=== PATIENT | female | born 1945 | race Caucasian/White ===

== ENCOUNTER 2017-02-26 15:48 | Emergency (ER) | END 2017-02-26 23:38 | disposition short-term general hospital (02) | DX: R06.89 Other abnormalities of breathing (principal); J44.1 Chronic obstructive pulmonary disease with (acute) exacerbation; I50.21 Acute systolic (congestive) heart failure; G93.40 Encephalopathy, unspecified; E86.0 Dehydration; I10 Essential (primary) hypertension; F17.210 Nicotine dependence, cigarettes, uncomplicated | CPT/HCPCS: 36415; 36600; 71010; 80053; 81001; 82803; 83690; 84484; 85025; 93005; 94644; 94660; 96374; 96375; 99291; J1940; J2930 ==

== ENCOUNTER 2017-07-03 14:29 | Emergency (ER) | payer OTHER, MEDICAID ==
[~2017-07-03] VITALS: Ht 160 cm; Wt 72.7 kg
[~2017-07-03 14:29] MED LIST: CLON-379 PO
[2017-07-03 14:48] VITALS: Ht 160 cm; Wt 72.7 kg
[2017-07-03 18:07] LABS: ABNORMAL IP MESSAGE 1; BASOPHIL # 0.1 10^3/ul (0.0-0.1); BASOPHILS % 0.5 % (0.0-2.0); EOSINOPHILS # 0.1 10^3/ul (0.0-0.5); EOSINOPHILS % 0.7 % (0.0-7.0); HEMATOCRIT 53.3 % (37.0-47.0); HEMOGLOBIN 14.7 g/dl (12.0-16.0); LYMPHOCYTES # 1.2 10^3/ul (0.8-2.9); LYMPHOCYTES % 11.8 % (15.0-51.0); MEAN CORPUSCULAR HEMOGLOBIN 24.1 pg (29.0-33.0); MEAN CORPUSCULAR HGB CONC 27.6 g/dl (32.0-37.0); MEAN CORPUSCULAR VOLUME 87.5 fl (82.0-101.0); MONOCYTE # 0.9 10^3/ul (0.3-0.9); MONOCYTES % 8.6 % (0.0-11.0); NEUTROPHIL # 8.2 10^3/ul (1.6-7.5); NEUTROPHILS % 77.9 % (39.0-77.0); PLATELET COUNT 268 10^3/UL (140-415); RED BLOOD COUNT 6.09 10^6/ul (4.20-5.40); RED CELL DISTRIBUTION WIDTH 22.7 % (11.5-14.5); WHITE BLOOD COUNT 10.5 10^3/ul (4.8-10.8)
[2017-07-03 18:10] LABS: POSITIVE DIFF @See below
--- NOTE | 2017-07-03 18:13 | RADRPT ---
PROCEDURE: US Lower extremity Venous. CLINICAL INDICATION: Pain and swelling TECHNIQUE: Multiple sonographic images of the bilateral lower extremity deep venous system was obt ained utilizing grayscale, color-flow, compressive sonography and doppler imaging with augmentation. The images were reviewed on a PACS workstation. COMPARISON: None. FINDINGS: There is normal compressibility and flow within the bilateral common femoral, deep femoral, superfic ial femoral and popliteal veins. Normal respiratory variation and augmentation is seen. There is normal color flow and compressibility of bilateral posterior tibial and peroneal veins IMPRESSION: No sonographic evidence for bilateral lower extremity deep venous thrombosis. RPTAT: HH .Krzysztof Beckford MD, MD Date Time Electronically viewed and signed by .Krzysztof Beckford MD, on 07/03/2017 18:12 .W/
[2017-07-03 18:16] LABS: ADD UMIC YES; UR ASCORBIC ACID NEGATIVE (NEGATIVE); UR BACTERIA FEW /HPF (NONE SEEN); UR BILIRUBIN (Dip) NEGATIVE (NEGATIVE); UR BLOOD (Dip) NEGATIVE (NEGATIVE); UR CLARITY SLIGHTLY CLOUDY (CLEAR); UR COLOR YELLOW (YELLOW); UR GLUCOSE (Dip) NEGATIVE (NEGATIVE); UR KETONES (Dip) NEGATIVE (NEGATIVE); UR LEUKOCYTE ESTERASE (Dip) NEGATIVE Leu/ul (NEGATIVE); UR MUCUS MODERATE /HPF (NONE SEEN); UR NITRITE (Dip) NEGATIVE (NEGATIVE); UR RBC 2 /HPF (0-5); UR SPECIFIC GRAVITY (Dip) 1.024 (1.003-1.030); UR SQUAMOUS EPITHELIAL CELL FEW /HPF (FEW); UR TOTAL PROTEIN (Dip) 2+ mg/dl (NEGATIVE); UR UROBILINOGEN (Dip) 1+ mg/dL (NEGATIVE)
[2017-07-03] MEDS ORDERED: morphine 4 MG/ML VIAL IV STA (18:17)
[2017-07-03 18:29] LABS: INR 1.1; PARTIAL THROMBOPLASTIN TIME 27.8 Sec (25.0-35.0); PROTIME 14.2 Sec (12.2-14.2); PT RATIO 1.1
[2017-07-03 18:31] LABS: ALBUMIN 3.6 g/dl (3.3-4.9); ALBUMIN/GLOBULIN RATIO 1.05; BILIRUBIN,INDIRECT 0.2 mg/dl (0-1.1); BILIRUBIN,TOTAL 0.2 mg/dl (0.2-1.3); CALCIUM 8.6 mg/dl (8.4-10.2); CREATININE 0.72 mg/dl (0.44-1.00); POTASSIUM 4.9 mmol/L (3.5-5.1)
[2017-07-03 18:43] LABS: TROPONIN-I 0.035 ng/ml (0.00-0.12)
--- NOTE | 2017-07-03 18:44 | RADRPT ---
PROCEDURE: Chest x-ray CLINICAL INDICATION: Shortness of breath TECHNIQUE: Chest single view COMPARISON: 02/26/2017 FINDINGS: There is severe cardiomegaly and moderate sclerotic aortic calcification. Mild to moderate CHF is id entified. No confluent pneumonia seen. Costophrenic angles are sharp. Bones are osteopenic. IMPRESSION: 1. Severe cardiomegaly with mild to moderate degree CHF. 2. Atherosclerotic aortic calcification. 3. Scoliosis with convexity to the right RPTAT: HH .Krzysztof Beckford MD, MD Date Time Electronically viewed and signed by .Krzysztof Beckford MD, on 07/03/2017 18:44 .W/
[2017-07-03 18:53] LABS: AADO2 Arterial 45.7 mmHg (7.0-24.0); Allen Test ACCEPTAB; Arterial Base Excess 6.1 mmol/L (-3.0-3); Arterial COHb 2.3 % (0.0-3.0); Arterial Fraction of Oxyhgb 84.2 % (93.0-99.0); Arterial MetHb 0.2 % (0.0-1.5); Arterial Total Hemglobin 15.8 g/dl (12.0-18.0); MODE NASAL CANNULA
[2017-07-03] MEDS ORDERED: ALBUTEROL 0.5% (NEB) 2.5 MG/0.5 ML AMP INH STA (19:00)
[2017-07-03] MEDS ORDERED: FUROSEMIDE 20 MG INJ IV ONE (19:00)
--- NOTE | 2017-07-03 21:24 | RADRPT ---
PROCEDURE: CT abdomen and pelvis without contrast. CLINICAL INDICATION: Abdominal pain. Distension. TECHNIQUE: CT scan of the abdomen and pelvis without contrast was performed and is reconstructed a t at 2.5 mm contiguous axial intervals from the dome of the diaphragm to the inferior pubic rami.. The patient was scanned without intravenous contrast. Sagittal and coronal reformatted images were obtained from the axial source images. The calculated radiation dose measures 1158 mGy centimeters. The CTDI measures 22 mGy. Individualized dose optimization technique was used for the performance of this exam. This included 1. Automated exposure control. 2. Adjustment of the mA and / or kV according to the patient's size. 3. Use of iterative reconstructed technique. COMPARISON: The CT abdomen and pelvis July 13, 2014 FINDINGS: The lung bases are clear of any infiltrate or nodule. No effusion is seen. There is minimal atelect asis at the lung bases with evidence of cardiomegaly and central pulmonary vascular congestion. A ti ny pericardial effusion is seen. The liver is of normal size, contour and attenuation with no mass or ductal dilatation. No gallston es are visualized. No splenic, adrenal or pancreatic abnormalities present. Kidneys are of normal size and contour. No hydronephrosis, calculus or masses seen. Ureters are o f normal course and caliber with no stone. No bladder mass or stone is present. Atrophic postmenopa usal uterus is normal. No adnexal masses present. There is no aneurysm. Noted are vascular calcifications. No adenopathy is present. No bowel mass or obstruction is present. The appendix is not confidently seen, however, no inflam ed appendix is identified.. There is diverticulosis. No phlegmon or pneumoperitoneum is visualized. There is trace ascites. 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 IMPRESSION: No evidence of urolithiasis, obstructive uropathy, diverticulitis or appendicitis. Small volume ascites. Diverticulosis. Bibasilar atelectasis. Cardiomegaly with central pulmonary vascular congestion. Rotary levoscoliosis throughout the lumbar spine with degenerative disc disease and osteoarthritis l eft hip. .Oscar Reveles MD, Date Time Electronically viewed and signed by .Oscar Reveles MD, on 07/03/2017 21:24 .A/
[2017-07-03 21:47] VITALS: BP 114/72; PULSE 90; RESP 16; TEMP 98.6
--- NOTE | 2017-07-03 23:31 | ERD ---
ER Documentation Chief Complaint Chief Complaint lower ap with bilat upper leg & orbital swelling x 3 weeks HPI 71-year-old female with a history of hypertension, COPD, CHF presenting to the ER complaining of bilateral lower extremity swelling and abdominal distention. Patient states that this is been going on for about 3 weeks. She has also had intermittent periorbital swelling as well. She complains of significant chronic shortness of breath, acutely worse. She denies any associated chest pain, nausea, vomiting, diarrhea, constipation, fever, chills. She states she was taken off her diuretics about 1 year ago because she was urinating too much and did not want to. So her doctor just stopped them. She has not been following up regularly with her physicians. She is not using her respiratory medications as prescribed either. ROS All systems reviewed and are negative except as per history of present illness. Medications Home Meds Active Scripts Clonidine Hcl* (Clonidine Hcl*) 0.1 Mg Tab, 0.1 MG PO TID, #20 TAB Prov:GRAHAM SMITH 06/14/16 Allergies Allergies: Coded Allergies: No Known Drug Allergies (Verified Allergy, Mild, 06/13/16) PMhx/Soc History of Surgery: No Anesthesia Reaction: No Hx Neurological Disorder: Yes (POLIO, pinch nerve at back) Hx Respiratory Disorders: Yes (COPD) Hx Cardiac Disorders: Yes (HIGH CHOLESTEROL) Hx Psychiatric Problems: No Hx Miscellaneous Medical Probl: No Hx Alcohol Use: Yes (OCCASIONALLY) Hx Substance Use: No Hx Tobacco Use: Yes Smoking Status: Never smoker FmHx Family History: No diabetes Physical Exam Vitals Vital Signs Date Time Temp Pulse Resp B/P Pulse Ox O2 Delivery O2 Flow Rate FiO2 07/03/17 21:47 98.6 90 16 114/72 96 Nasal Cannula 5.0 07/03/17 19:11 90 24 91 Nasal Cannula 2.0 07/03/17 17:56 96 20 129/83 95 Nasal Cannula 5.0 07/03/17 17:56 Nasal Cannula 5 07/03/17 14:48 99.2 93 20 115/70 94 Physical Exam Const: Nontoxic, appears to be in distress secondary to abdominal pain. Speaking in full sentences, however gets fatigued with little exertion. Head: Atraumatic Eyes: Normal Conjunctiva. Periorbital edema noted bilaterally. ENT: Normal External Ears, Nose and Mouth. No angioedema Neck: Full range of motion..~ No meningismus. No JVD Resp: Diminished breath sounds bilaterally, diffuse expiratory wheezing, no rales or rhonchi Cardio: Regular rate and rhythm, no murmurs Abd: Soft, distended with pitting edema, minimal diffuse tenderness. Normal bowel sounds Skin: No petechiae or rashes Back: No midline or flank tenderness Ext: No cyanosis, 3+ edema up to groin. Bilateral upper extremities without edema. 2+ distal pulses in all 4 extremities Neur: Awake and alert Psych: Easily agitated Result Diagram: 07/03/17 [id number] Results 24 hrs Laboratory Tests Test 07/03/17 17:55 07/03/17 18:48 White Blood Count 10.510^3/ul Red Blood Count 6.0910^6/ul Hemoglobin 14.7g/dl Hematocrit 53.3% Mean Corpuscular Volume 87.5fl Mean Corpuscular Hemoglobin 24.1pg Mean Corpuscular Hemoglobin Concent 27.6g/dl Red Cell Distribution Width 22.7% Platelet Count 23762^3/UL Mean Platelet Volume 10.0fl Neutrophils % 77.9% Lymphocytes % 11.8% Monocytes % 8.6% Eosinophils % 0.7% Basophils % 0.5% Nucleated Red Blood Cells % 0.0/100WBC Neutrophils # 8.210^3/ul Lymphocytes # 1.210^3/ul Monocytes # 0.910^3/ul Eosinophils # 0.110^3/ul Basophils # 0.110^3/ul Nucleated Red Blood Cells # 0.010^3/ul Prothrombin Time 14.2Sec Prothrombin Time Ratio 1.1 INR International Normalized Ratio 1.10 Activated Partial Thromboplast Time 27.8Sec Urine Color YELLOW Urine Clarity SLIGHTLY CLOUDY Urine pH 5.0 Urine Specific [place] 1.024 Urine Ketones NEGATIVEmg/dL Urine Nitrite NEGATIVEmg/dL Urine Bilirubin NEGATIVEmg/dL Urine Urobilinogen 1+mg/dL Urine Leukocyte Esterase NEGATIVELeu/ul Urine Microscopic RBC 2/HPF Urine Microscopic WBC 5/HPF Urine Squamous Epithelial Cells FEW/HPF Urine Bacteria FEW/HPF Urine Mucus MODERATE/HPF Urine Hemoglobin NEGATIVEmg/dL Urine Glucose NEGATIVEmg/dL Urine Total Protein 2+mg/dl Sodium Level 146mmol/L Potassium Level 4.9mmol/L Chloride Level 103mmol/L Carbon Dioxide Level 35mmol/L Anion Gap 13 Blood Urea Nitrogen 27mg/dl Creatinine 0.72mg/dl Glucose Level 120mg/dl Calcium Level 8.6mg/dl Total Bilirubin 0.2mg/dl Direct Bilirubin 0.00mg/dl Indirect Bilirubin 0.2mg/dl Aspartate Amino Transf (AST/SGOT) 34IU/L Alanine Aminotransferase (ALT/SGPT) 33IU/L Alkaline Phosphatase 110IU/L Troponin I 0.035ng/ml Total Protein 7.0g/dl Albumin 3.6g/dl Globulin 3.40g/dl Albumin/Globulin Ratio 1.05 Blood Gas Specimen Source Blood arterial Arterial Blood Date Drawn 07/03/2017 6:45:20 PM Arterial Blood pH (Temp corrected) 7.290 Arterial Blood pCO2 (Temp correct) 76.5mmhg Arterial Blood pO2 (Temp corrected) 56.4mmHG Arterial Blood HCO3 36.0mmol/L Arterial Blood Base Excess 6.1mmol/L Arterial Blood Oxygen Saturation 86.4mmHG Robbie Test ACCEPTAB Arterial Blood Gas Puncture Site Right Radial Arterial Blood Carboxyhemoglobin 2.3% Arterial Blood Methemoglobin 0.2% Blood Gas A-a O2 Differential 45.7mmHg Oxyhemoglobin Percent 84.2% Total Hemoglobin 15.8g/dl Blood Gas Temperature 37.0C Blood Gas Modality NASAL CANNULA FiO2 27.0% Blood Gas Critical Value Read Back EFRAIN Rodas Blood Gas Notified Whom RT Blood Gas Notified Time 07/03/2017 6:53:13 PM Current Medications Medications (Trade) Dose Ordered Sig/Roger Route PRN Reason Start Time Stop Time Status Last Admin Dose Admin Morphine Sulfate (morphine) 4 mg ONCE STAT IV 07/03/17 18:17 07/03/17 18:18 DC 07/03/17 18:38 Furosemide (Lasix) 20 mg ONCE ONCE IV 07/03/17 19:00 07/03/17 19:01 DC 07/03/17 19:37 Albuterol (Proventil 0.5% (Neb)) 15 mg ONCE STAT INH 07/03/17 19:00 07/03/17 19:01 DC 07/03/17 19:11 Procedures/MDM EMERGENT LABS AND DIAGNOSTIC STUDIES: Lab Results above were reviewed and interpreted by me. CBC unremarkable BMP shows hypernatremia, high CO2, elevated BUN Trop within normal limits 12-lead EKG was interpreted by Noy Dominique MD: Normal Sinus Rhythm Normal axis Normal intervals No acute ST or T wave changes suggestive of acute ischemia or STEMI. Radiology Results as interpreted by Radiology below were reviewed by Azar Dominique MD: Chest x-ray: Severe cardiomegaly, evidence of mild CHF Initial Nursing notes reviewed. Previous Medical Records requested via the Electronic Health Record. EMERGENCY DEPARTMENT COURSE / MEDICAL DECISION MAKING: Patient is presenting with signs and symptoms consistent with CHF exacerbation versus COPD exacerbation. When she arrived her vitals were notable for mild tachycardia and mild hypoxia on room air. Her exam is consistent with fluid overload and the patient will benefit from aggressive diuresis. Additionally with her COPD exacerbation, continuous albuterol treatment was given with significant improvement in her symptoms and her hypoxia. Her blood gas was notable for acidemia with hypercapnia, suggestive of respiratory acidosis. I have a low suspicion for sepsis, ACS, or PE. Lasix 20 mg IV was given. Patient remained hemodynamically stable and symptomatically improved. However I do not believe she is safe for discharge at this time and will require admission for further diuresis and treatment of her COPD exacerbation. Patient is a [facility] member. I believe she is stable for transfer at this time to their facility. I spoke with Dr. Toledo, who accepted the patient for transfer. Authorization #[id number] Critical Care Time: 35 minutes Treatments/Evaluations: Close monitoring and treatment of unstable vital signs, cardiorespiratory, and neurologic status, while maintaining tight balance of fluid, respiratory, and cardiac interventions. This time includes discussing the case with the patient and the patients family. This time does not include all procedures stated elsewhere in this record. This time also includes reviewing old records, labs and radiological studies. This time includes examining and re-examining the patient. Additionally, this time also includes arranging care with admitting and consulting physicians. Departure Diagnosis: Primary Impression: Acute and chronic respiratory failure Additional Impressions: CHF (congestive heart failure) Congestive heart failure type: unspecified congestive heart failure type Congestive heart failure chronicity: acute on chronic Qualified Code: I50.9 - Acute on chronic congestive heart failure, unspecified congestive heart failure type COPD exacerbation YOLANDA Schumacher MD Jul 03, 2017 23:31
== END 2017-07-03 22:31 | disposition short-term general hospital (02) ==
LOC: E/R 14:29
DX: J96.20 Acute and chronic respiratory failure, unspecified whether with hypoxia or hypercapnia (principal); R40.2252 Coma scale, best verbal response, oriented, at arrival to emergency department; I50.9 Heart failure, unspecified; J44.1 Chronic obstructive pulmonary disease with (acute) exacerbation; R60.1 Generalized edema; R40.2142 Coma scale, eyes open, spontaneous, at arrival to emergency department; R40.2362 Coma scale, best motor response, obeys commands, at arrival to emergency department; Z87.891 Personal history of nicotine dependence
CPT/HCPCS: 36415; 36600; 71010; 74176; 80053; 81001; 82803; 84484; 85025; 85610; 85730; 93005; 93970; 94644; 96374; 96375; 99291; J1940; J2270

== ENCOUNTER 2018-02-16 20:38 | Inpatient (IN) | END 2018-02-17 17:57 | disposition short-term general hospital (02) | DRG 190 ==